=== PATIENT | female | born 1995 | race Caucasian/White ===

== ENCOUNTER → 2023-02-27 11:41 | Outpatient (CLI) | payer BC, SELFPAY ==
--- NOTE | ~2023-02-27 | XR_ITS ---
EXAMINATION: XR sacrum coccyx min 2V DATE: 02/27/2023 12:20 INDICATION: Coccydynia. TECHNIQUE: 4 views of the sacrum and coccyx were obtained. COMPARISON: None. FINDINGS: Bone alignment is normal. No fracture. The sacroiliac joints are normal. IMPRESSION: 1. No fracture. Reviewed, dictated and finalized at location E. IMPRESSION: 1. No fracture.
== END ==
PROVIDERS: PCP Family Medicine
DX: M53.3 Sacrococcygeal disorders, not elsewhere classified (principal)
CPT/HCPCS: 72220

== ENCOUNTER 2025-02-18 13:28 | Emergency (ER) | payer BC, SELFPAY ==
[2025-02-18 13:47] VITALS: BP 128/79; PULSE 67; RESP 16; TEMP 36.4; O2SAT 100
[2025-02-18] MEDS: LIDOCAINE 1% LOCAL INJ 2 ML AMPUL 4 ML INFILTRATE (14:20)
--- NOTE | 2025-02-18 14:59 | ED.GENADULT ---
HPI - General Adult General Chief complaint: Wound/Laceration Stated complaint: L HAND LACERATION Source: patient Mode of arrival: ambulatory Limitations: no limitations History of Present Illness HPI narrative: patient presents for evaluation of a laceration to the left hand that she sustained this morning around 0900. She was attempting to pry apart two frozen sausage patties when the knife slipped and cut her in the palmar aspect of the left hand. She now rates her pain 5/10 severity. She has some numbness in the 3rd digit. She is right-hand dominant. She is not diabetic. She is up-to-date on tetanus. She does not smoke. No loss of range of motion. Related Data Home Medications ?Medication ?Instructions ?Recorded ?Confirmed ?Last Taken ?Type omeprazole 20 mg capsule,delayed mg PO 10/19/24 02/10/25 Unknown History release cholecalciferol (vitamin D3) 125 125 mcg PO DAILY 02/10/25 02/18/25 Unknown History mcg (5,000 unit) capsule docosahexaenoic acid 200 mg mg PO 02/10/25 02/10/25 Unknown History capsule ( DHA) docusate sodium 50 mg capsule 50 mg PO DAILY 02/10/25 02/18/25 Unknown History (Stool Softener) Allergies Allergy/AdvReac Type Severity Reaction Status Date / Time tetracycline Allergy Intermediate Rash Verified 02/18/25 13:49 Review of Systems Review of Systems: CONSTITUTIONAL: Denies fever, chills, or sweats. EYES: Denies visual changes, redness, or discharge. ENT: Denies rhinorrhea, congestion, sore throat, or otalgia. CARDIOVASCULAR: Denies chest pain, palpitations, or edema. RESPIRATORY: Denies cough or dyspnea. GASTROINTESTINAL: Denies abdominal pain, nausea, vomiting, or diarrhea. GENITOURINARY: Denies dysuria or hematuria. SKIN: Reports laceration to palmar section of the left hand MUSCULOSKELETAL: Reports left hand pain. Denies back pain or joint pain NEUROLOGIC: Reports numbness in the 3rd digit of left hand. Denies headache, dizziness, or weakness. PSYCHIATRIC: Denies anxiety or depression. [facility] Past Medical History Medical History Fatty liver Hypertension Anxiety Surgical History Surgical History H/O gastric bypass 2019 Family History Family History Grandparent Rectum cancer Social History Social History Smoking status: Never smoker Alcohol intake: never Substance use: never Substance use type: does not use Do You Feel Safe in your Home?: Yes Current Housing: Decline to Answer Concerned About Future Housing: Decline to Answer Difficulty Paying Gas/Electric Bills: Decline to Answer Difficulty Paying for Meds: Decline to Answer Currently Unemployed: Decline to Answer Education: Decline to Answer Difficulty w/ Childcare or Family Care: Decline to Answer Living arrangements: with family Occupation/Education: occupation Additional occupation/education comments: [employer] Gender identity (if verbalized by the patient): Female Sexual Orientation (if Verbalized by the Patient): Straight or Heterosexual Exam Narrative: GENERAL: Well-appearing, well-nourished, and in no acute distress. HEAD: Normocephalic, atraumatic. EYES: PERRLA and EOMI. ENT: Nares clear, no rhinorrhea or epistaxis. Mucous membranes moist. Oropharynx without tonsillar hypertrophy exudate or other lesions. Bilateral TMs pearly matthew nonbulging NECK: Supple. No adenopathy or masses. No carotid bruits or JVD CHEST: Clear to auscultation. No respiratory distress. No wheezes rales or rhonchi HEART: Regular rate and rhythm. No murmur heard. Normal peripheral pulses. ABDOMEN: Soft, nontender, nondistended, normal active bowel sounds. EXTREMITIES: Normal range of motion. No edema. SKIN: Approximately 1.2 cm linear laceration to the palmar aspect of the left hand NEURO: No focal deficits. Alert and oriented x3. PSYCH: Normal mood and affect. Course Course Level of Care: [facility] Care Visit Vital Signs Vital signs: Vital Signs Temperature 36.4 C 02/18/25 13:47 Pulse Rate 67 02/18/25 13:47 Respiratory Rate 16 02/18/25 13:47 Blood Pressure 128/79 02/18/25 13:47 Pulse Oximetry 100 02/18/25 13:47 Temperature 36.4 C 02/18/25 13:47 Pulse Rate 67 02/18/25 13:47 Respiratory Rate 16 02/18/25 13:47 Blood Pressure 128/79 02/18/25 13:47 Pulse Oximetry 100 02/18/25 13:47 Procedures Laceration Laceration 1: Date: 02/18/25 Time: 15:04 Site: hand Side (If applicable): left Size (cm): 1.2 Description: linear Local Anesthetic: lidocaine 1% Amount of anesthesia used (mL): 3 Pre-repair: wound explored and irrigated ====== Skin Level ====== Skin layer closed with: nylon Size (cm): 5-0 Number of sutures: 2 ====== Subcutaneous Layer ====== ====== Muscle Layer ====== ====== Tendon Layer ====== Medical Decision Making Vital Signs Vital Signs: Vital Signs Temperature 36.4 C 02/18/25 13:47 Pulse Rate 67 02/18/25 13:47 Respiratory Rate 16 02/18/25 13:47 Blood Pressure 128/79 02/18/25 13:47 Pulse Oximetry 100 02/18/25 13:47 Temperature 36.4 C 02/18/25 13:47 Pulse Rate 67 02/18/25 13:47 Respiratory Rate 16 02/18/25 13:47 Blood Pressure 128/79 02/18/25 13:47 Pulse Oximetry 100 02/18/25 13:47 Discharge Plan Discharge Clinical Impression: Laceration of hand, left Patient Disposition: Home Condition: Stable Instructions: Antibiotic Form, Care For Your Stitches (DC), Laceration (ED) Additional Instructions: WASH HAND THREE TIMES DAILY WITH ANTIBACTERIAL SOAP AND WATER PAT DRY APPLY NEOSPORIN SUTURES WILL NEED TO BE REMOVED IN 7-10 DAYS IF YOU HAVE SIGNS OF INFECTION PLEASE GO TO THE EMERGENCY DEPARTMENT Patient Language: [place] Prescriptions: No Action omeprazole 20 mg capsule,delayed release(DR/EC) PO Stool Softener 50 mg capsule 50 mg PO DAILY DHA 200 mg capsule PO cholecalciferol (vitamin D3) 125 mcg (5,000 unit) capsule 125 mcg PO DAILY Follow-up/Referrals: JHONY AU,FOREIGN Mckee M.D. [Primary Care Provider] Time of Disposition: 14:58
== END 2025-02-18 15:05 | disposition home or self-care (01) ==
PROVIDERS: Emergency Provider Nurse Practitioner; PCP Internal Medicine
DX: S61.412A Laceration without foreign body of left hand, initial encounter (principal); W26.0XXA Contact with knife, initial encounter; I10 Essential (primary) hypertension; K76.0 Fatty (change of) liver, not elsewhere classified; Z98.84 Bariatric surgery status
CPT/HCPCS: 12001; 99212; G0463; J2003